=== PATIENT | female | born 1960 | race Caucasian/White ===

== ENCOUNTER 2024-01-23 11:51 | Emergency (ER) | payer OTHER ==
[~2024-01-23] VITALS: Ht 162.6 cm; Wt 70.0 kg
[2024-01-23 11:54] VITALS: O2SAT 98
[2024-01-23] MEDS ORDERED: HYDR1POW MC (11:58)
[2024-01-23] MEDS: ONDANSETRON HCL 4MG/2ML INJ IV STA (12:04)
[2024-01-23] MEDS: KETOROLAC 30MG/ML VIAL IV STA (12:04)
[2024-01-23] MEDS: SODIUM CHLORIDE 0.9% 1,000 ML IV ONE (12:15)
[2024-01-23 12:49] LABS: HEMATOCRIT. 41.1 % (36.0-48.0); HEMOGLOBIN. 13.3 g/dL (12.0-16.0); MEAN CORPUSCULAR HGB CONC 32.4 g/dL (31.0-37.0); MEAN CORPUSCULAR VOLUME 92.6 fL (81.0-99.0); PLATELET 223 x1000/uL (130-400); RED BLOOD CELL COUNT 4.44 mill/uL (4.2-5.4); RED CELL DISTRIBUTION WIDTH 14.3 % (11.6-14.6); WHITE BLOOD COUNT 6.1 x1000/uL (4.5-11.0)
[2024-01-23 12:51] LABS: DIFFERENTIAL COMMENT 1
[2024-01-23 12:52] LABS: CHLORIDE 104 mEq/L (98-107); POTASSIUM 3.6 mEq/L (3.5-5.1); SODIUM 138 mEq/L (136-145)
[2024-01-23 12:53] LABS: CARBON DIOXIDE 25 mEq/L (21-32)
[2024-01-23 12:56] LABS: PROTHROMBIN TIME 10.7 sec (9.6-11.0)
[2024-01-23 12:58] LABS: CREATININE 0.6 mg/dL (0.6-1.0); GLUCOSE 136 mg/dL (70-105); UREA NITROGEN BLOOD 15 mg/dL (9-23)
[2024-01-23 12:59] LABS: ALANINE AMINOTRANSFERASE 45 IU/L (10-49)
[2024-01-23 13:00] LABS: ALBUMIN 4.5 g/dL (3.2-4.8); ASPARTATE AMINOTRANSFERASE 41 IU/L (<34); BILIRUBIN DIRECT 0.3 mg/dL (<=3.0); PROTEIN TOTAL 7.3 g/dL (6.0-8.3)
[2024-01-23] MEDS ORDERED: AMOX1TAB16 PO (13:32)
[2024-01-23] MEDS ORDERED: ONDA4TAB50 PO (13:32)
[2024-01-23] MEDS: AMOXICILLIN/POTASSIUM CLAVULANATE 875/125MG TAB PO ONE (13:43)
[2024-01-23 13:48] LABS: PLATELET ESTIMATE NORMAL
[2024-01-23 14:33] VITALS: BP 128/76; PULSE 89; RESP 14; TEMP 36.39180; O2SAT 99
== END 2024-01-23 14:38 | disposition home or self-care (01) ==
LOC: EDSEX 11:51 → ER 12:38
DX: K57.32 Diverticulitis of large intestine without perforation or abscess without bleeding (principal); Z88.5 Allergy status to narcotic agent
CPT/HCPCS: 80076; 80048; 83690; 85025; 85610; 36415; 74176; 96361; 96374; 96375; 99285; J1885; J2405; J7030; Z7610